=== PATIENT | male | born 1945 | race African-American/Black ===

== ENCOUNTER 2021-05-11 17:15 | Emergency (ER) | payer MEDICARE, MEDICAID ==
[~2021-05-11] VITALS: Ht 167.6 cm; Wt 100.0 kg
[~2021-05-11 17:15] MED LIST: abilify PO
[2021-05-11 17:18] VITALS: BP 157/64
== END 2021-05-11 21:11 | disposition left against medical advice (07) ==
LOC: ER 17:15
DX: Z53.21 Procedure and treatment not carried out due to patient leaving prior to being seen by health care provider (principal)